=== PATIENT | female | born 1970 | race Caucasian/White ===

== ENCOUNTER → 2017-08-11 | Outpatient (CLI) | payer OTHER | END | disposition home or self-care (01) | LOC: OIH 12:49 | PROVIDERS: ATTEND Nurse Practitioner Adult Health | DX: Z13.6 Encounter for screening for cardiovascular disorders (principal) | CPT/HCPCS: 75571 ==

== ENCOUNTER → 2017-08-22 | Outpatient (CLI) | payer OTHER | END | disposition home or self-care (01) | LOC: RAH 15:33 | PROVIDERS: ATTEND Nurse Practitioner Adult Health | DX: Z12.31 Encounter for screening mammogram for malignant neoplasm of breast (principal) | CPT/HCPCS: 77067 ==

== ENCOUNTER → 2018-10-23 | Outpatient (CLI) | payer OTHER | END | disposition home or self-care (01) | LOC: RAH 13:30 | PROVIDERS: ATTEND Nurse Practitioner Adult Health | DX: Z12.31 Encounter for screening mammogram for malignant neoplasm of breast (principal) | CPT/HCPCS: 77067 ==

== ENCOUNTER → 2020-02-08 | Outpatient (CLI) | payer OTHER | END | disposition home or self-care (01) | LOC: RAH 09:53 | PROVIDERS: ATTEND Nurse Practitioner Adult Health | DX: Z12.31 Encounter for screening mammogram for malignant neoplasm of breast (principal) | CPT/HCPCS: 77067 ==

== ENCOUNTER 2021-03-17 05:48 | Day surgery (SDC) | payer BC, OTHER ==
[~2021-03-17] VITALS: Ht 162.6 cm; Wt 90.3 kg
[~2021-03-17 05:48] MED LIST: CANA300T PO; ICOS1CAP PO; INSU100I24 SQ; LISI40TA9 PO; METO-391 PO; MULT-1367 PO; ROSU40TA21 PO; SEMA1PEN3 SQ; VITA-395 PO; VITA100C27 PO; VITAD50000 PO
[2021-03-17] MEDS ORDERED: 0.9%NACL 1000ML 1,000 ML IV ONE (06:33)
[2021-03-17 07:08] VITALS: BP 106/73
[2021-03-17] MEDS ORDERED: PROPOFOL 10 MG/ML 20ML VIAL IV ONE (07:40)
[2021-03-17] MEDS ORDERED: LIDOCAINE HCL 1% 20 ML VIAL ONE (07:41)
[2021-03-17 08:00] VITALS: BP 104/65
[2021-03-17 08:05] VITALS: BP 112/67
[2021-03-17 08:10] VITALS: BP 106/65
[2021-03-17 08:15] VITALS: BP 109/66
== END 2021-03-17 08:30 | disposition home or self-care (01) ==
LOC: DAH 05:48 → ENDO 05:48
PROVIDERS: ATTEND Internal Medicine
DX: Z09 Encounter for follow-up examination after completed treatment for conditions other than malignant neoplasm (principal); Z20.822 Contact with and (suspected) exposure to COVID-19; K63.5 Polyp of colon; R94.5 Abnormal results of liver function studies; I10 Essential (primary) hypertension; E11.9 Type 2 diabetes mellitus without complications; E78.2 Mixed hyperlipidemia; Z98.891 History of uterine scar from previous surgery; Z72.89 Other problems related to lifestyle; Z86.010 Personal history of colon polyps
CPT/HCPCS: 45380; 45381; 87635; A4215 ×2; A4221; A4222; A4223; A4606; A4620; A4657; A4663; C9803; J2704; J7030